=== PATIENT | female | born 1990 | race Caucasian/White ===

== ENCOUNTER 2024-11-14 17:25 | Emergency (ER) | payer SELFPAY ==
[2024-11-14 17:29] VITALS: BP 160/102
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
[2024-11-14 21:55] LABS: % Basophils 0.5 % (0-2); % Eosinophils 3.5 % (0-6); % Lymphocytes 25.4 % (20.5-51.1); % Monocytes 7.8 % (1.7-9.3); % Neutrophils 62.8 % (42.2-75.2); Absolute Eosinophils 0.2 10^3/uL (0-0.7); Absolute Lymphocytes 1.6 10^3/uL (1.2-3.4); Absolute Monocytes 0.5 10^3/uL (0.1-0.6); Hematocrit 25.7 % (37.0-47.0); Hemoglobin 9.1 g/dL (12.0-16.0); Mean Corp Hgb Conc. 35.4 g/dL (33.0-37.0); Mean Corpuscular Hgb 31.6 pg (27.0-31.0); Mean Corpuscular Volume 89.2 fL (81.0-99.0); Mean Platelet Volume 11.4 fL (7.4-10.4); Nucleated Red Blood Cells % 0 %; Platelet Count 170 10^3/uL (130-400); Red Blood Cell Count 2.88 10^6/uL (4.20-5.40); Red Cell Dist. Width 12.1 % (11.5-14.5); White Blood Cell Count 6.3 10^3/uL (4.8-10.8)
[2024-11-14 22:09] LABS: HCG, Serum Qualitative Screen Negative
[2024-11-14 22:16] LABS: ALT (SGPT) 155 U/L (0-35); AST (SGOT) 130 U/L (14-36); Alkaline Phosphatase 146 U/L (38-126); Blood Urea Nitrogen 6 mg/dl (7-17); Calcium 8.6 mg/dl (8.4-10.2); Carbon Dioxide 25 mmol/L (22-30); Chloride 108 mmol/L (98-107); Glucose 123 mg/dl (70-99); Potassium 3.3 mmol/L (3.5-5.1); Sodium 139 mmol/L (135-145); Total Bilirubin 0.6 mg/dl (0.2-1.3); Total Protein 6.6 g/dl (6.3-8.2); eGFR > 60.00
[2024-11-14 22:58] VITALS: BP 131/87; BMI 29.5
[2024-11-15] VITALS: BP 127/88
[2024-11-15] MEDS: FLEXERIL 10 MG PO (00:27)
== END 2024-11-15 00:59 | disposition home or self-care (01) ==
LOC: EMR 17:25
PROVIDERS: Nurse Practitioner; EMERGENCY PHYSICIAN Emergency Medicine; FAMILY PHYSICIAN Physician Assistant Medical
DX: S82.144A Nondisplaced bicondylar fracture of right tibia, initial encounter for closed fracture (principal); S50.11XA Contusion of right forearm, initial encounter; S20.212A Contusion of left front wall of thorax, initial encounter; S30.1XXA Contusion of abdominal wall, initial encounter; S80.02XA Contusion of left knee, initial encounter; S60.051A Contusion of right little finger without damage to nail, initial encounter; S60.211A Contusion of right wrist, initial encounter; S60.221A Contusion of right hand, initial encounter; V47.0XXA Car driver injured in collision with fixed or stationary object in nontraffic accident, initial encounter; Y92.410 Unspecified street and highway as the place of occurrence of the external cause; R03.0 Elevated blood-pressure reading, without diagnosis of hypertension; D64.9 Anemia, unspecified; G43.909 Migraine, unspecified, not intractable, without status migrainosus; K21.9 Gastro-esophageal reflux disease without esophagitis; E06.3 Autoimmune thyroiditis; F90.9 Attention-deficit hyperactivity disorder, unspecified type; F41.9 Anxiety disorder, unspecified; F32.A Depression, unspecified
CPT/HCPCS: 99285; 71260; 73090; 73130; 73564; 74177; 80053; 84703; 85025; Q9967